=== PATIENT | male | born 1970 | race Caucasian/White ===

== ENCOUNTER 2022-05-12 15:29 | Outpatient (CLI) | payer OTHER, SELFPAY ==
--- NOTE | ~2022-05-12 | XR_ITS ---
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 Comparison: 06/08/2017. RESULT: Lines, tubes, and devices: None. Lungs and pleura: Clear. Cardiomediastinal silhouette: Stable. Other: No acute osseous or upper abdominal finding. IMPRESSION: No acute cardiopulmonary process. Reviewed, dictated and finalized at location K. EY SUPERVISOR
== END 2022-05-12 15:30 | disposition home or self-care (01) ==
LOC: ANHIMG 15:35
PROVIDERS: PCP Family Medicine; Visit Provider Nurse Practitioner Adult Health
DX: R06.00 Dyspnea, unspecified (principal); Z86.16 Personal history of COVID-19
CPT/HCPCS: 71046